=== PATIENT | female | born 2000 | race Caucasian/White ===

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

== ENCOUNTER 2020-03-09 11:28 | Emergency (ER) | payer BC ==
[2020-03-09 11:38] VITALS: BP 113/73; PULSE 108; RESP 18; TEMP 99.1
[2020-03-09] MEDS ORDERED: diphenhydrAMINE 50 MG CAP PO STA (11:53)
[2020-03-09] MEDS ORDERED: methylPREDNISolone SOD SUCCI 125 MG/2 ML VIAL IM ONE (11:53)
--- NOTE | 2020-03-09 11:58 | ED ---
Skin/Abscess/FB HPI - General Chief complaint: Skin/Abscess/Foreign Body Stated complaint: rash Time Seen by Provider: 03/09/20 11:44 Source: patient Mode of arrival: ambulatory Limitations: no limitations - History of Present Illness Initial comments: Patient is a 19-year-old female presenting to the emergency department complaints of a rash on her abdomen for the last 3 days. He states it is extremely itchy, irritating. She has not tried any Benadryl or [id number] ointment. She states she recently changed to tide pods in her laundry soap and is usually very sensitive to laundry soaps. She denies any fever, chills. She states the rash is on both sides of her abdomen and in her inner thighs. She has no other complaints at this time. Upon arrival to the ER, her vitals are stable. - Related Data Previous Rx's Medication Instructions Recorded Amoxic-Pot Clav 875-125Mg 1 tab PO Q12HR #20 tablet 03/15/18 [Augmentin 875-125] methylPREDNISolone [Medrol Dose 4 mg PO DIRECTED #1 pack 03/09/20 Pack] Allergies Allergy/AdvReac Type Severity Reaction Status Date / Time No Known Allergies Allergy Verified 03/09/20 11:38 Review of Systems ROS Statement: Those systems with pertinent positive or pertinent negative responses have been documented in the HPI. ROS Other: All systems not noted in ROS Statement are negative. Past Medical History Past Medical History: No Reported History History of Any Multi-Drug Resistant Organisms: None Reported Past Surgical History: No Surgical Hx Reported Past Psychological History: Depression Smoking Status: Never smoker Past Alcohol Use History: None Reported Past Drug Use History: None Reported General Exam - General Exam Comments Initial Comments: GENERAL: Patient is well-developed and well-nourished. Patient is nontoxic and in no acute distress. HEAD: Atraumatic, normocephalic. EYES: Pupils equal round and reactive to light, extraocular movements intact, sclera anicteric, conjunctiva are normal. Eyelids were unremarkable. ENT: TMs normal, nares patent, oropharynx clear without exudates. Moist mucous membranes. NECK: Normal range of motion, supple without lymphadenopathy or JVD. LUNGS: Unlabored respirations. Breath sounds clear to auscultation bilaterally and equal. No wheezes rales or rhonchi. HEART: Regular rate and rhythm without murmurs, rubs or gallops. ABDOMEN: Soft, nontender, normoactive bowel sounds. No guarding, no rebound. No masses appreciated. : Deferred MUSCULOSKELETAL: Normal extremities with adequate strength and normal range of motion, no pitting or edema. No clubbing or cyanosis. NEUROLOGICAL: Patient is alert and oriented x 3. Normal speech, normal gait. PSYCH: Normal mood, normal affect. SKIN: Warm, Dry, normal turgor,. Patient has a macular, papular erythematous rash across both sides of the abdomen and inner thighs, distant with a contact dermatitis. Limitations: no limitations Course Vital Signs 03/09/20 11:35 Temperature 99.1 F Pulse Rate 108 H Respiratory 18 Rate Blood Pressure 113/73 O2 Sat by Pulse 98 Oximetry Medical Decision Making - Medical Decision Making Patient is a 19-year-old female here with a rash on her abdomen and inner thighs is consistent with a contact dermatitis, most likely from a new laundry soap. I will give her a shot of steroids and Benadryl here in the ER. He was continuing with oral steroids starting tomorrow and may continue with Benadryl as needed for the itching. Patient is stable for discharge. She is in agreement with this plan of care. Return parameters were discussed with the patient she verbalized understanding. Disposition Clinical Impression: Rash, Contact dermatitis Disposition: HOME SELF-CARE Condition: Stable Instructions (If sedation given, give patient instructions): Acute Rash (ED) Additional Instructions: Please return to the Emergency Department if symptoms worsen or any other concerns. Discontinue current laundry soap. Take steroids as prescribed, starting tomorrow. May take Benadryl every 4-6 hours for itching. Follow-up with family doctor if symptoms persist. Prescriptions: methylPREDNISolone [Medrol Dose Pack] 4 mg PO DIRECTED #1 pack Is patient prescribed a controlled substance at d/c from ED?: No Referrals: None,Stated [Primary Care Provider] - 1-2 days
== END 2020-03-09 12:05 | disposition home or self-care (01) ==
LOC: EC 11:28 → EEVIPCON 11:28 → EC 12:05
DX: L25.9 Unspecified contact dermatitis, unspecified cause (principal)
CPT/HCPCS: 99282; 96372; J2930